=== PATIENT | male | born 1955 | race Caucasian/White ===

== ENCOUNTER 2019-07-27 16:45 | Outpatient (CLI) | payer OTHER ==
[~2019-07-27 16:45] MED LIST: AMLO-150 PO; CEFD300C37 PO; DEXT1CAP PO; DIAZ5TAB PO; ESCI20TA PO; MELA3TAB56 PO; METO50TA82 PO; PANT40TA5 PO; SERT50TA28 PO; TRAZ50TA66 PO; VALP250C59 PO
== END 2019-07-27 23:59 | disposition home or self-care (01) ==
LOC: RAD 16:45
PROVIDERS: ATTEND Urology
DX: N20.0 Calculus of kidney (principal); F12.10 Cannabis abuse, uncomplicated; F17.200 Nicotine dependence, unspecified, uncomplicated; Z86.73 Personal history of transient ischemic attack (TIA), and cerebral infarction without residual deficits; Z96.0 Presence of urogenital implants
CPT/HCPCS: 74018